=== PATIENT | male | born 1955 | race Caucasian/White ===

== ENCOUNTER 2020-09-15 10:02 | Emergency (ER) | payer MEDICARE ==
[~2020-09-15] VITALS: Ht 182.9 cm; Wt 103.3 kg
[2020-09-15 10:56] LABS: BASOPHILS % (AUTO) 1 % (0-1); EOSINOPHILS % (AUTO) 5 % (1-7); LYMPHOCYTES % (AUTO) 23 % (22-44); MEAN CORPUSCULAR HEMOGLOBIN 30.8 pg (27.5-34.5); MEAN CORPUSCULAR HGB CONC 33.4 g/dL (33.2-36.2); MEAN PLATELET VOLUME 8.4 fL (7.4-10.4); MONOCYTES % (AUTO) 15 % (2-9); NEUTROPHILS % (AUTO) 57 % (42-75); PLATELET COUNT 266 x10^3/uL (130-400); RED BLOOD COUNT 3.93 x10^6/uL (4.38-5.82); RED CELL DISTRIBUTION WIDTH 14.9 % (9.4-14.8)
[2020-09-15 10:58] LABS: MD NO
--- NOTE | 2020-09-15 11:00 | NUR ---
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 He has not had a paracentisis in the past r/t ascites. Pt in no respiratory distress. Connected to all monitors. IV started for access.
[2020-09-15 11:08] LABS: ALBUMIN 2.7 g/dL (3.4-5.0); ANION GAP 6 mmol/L (5-15); CALCIUM 8.8 mg/dL (8.5-10.1); CHLORIDE 105 mmol/L (98-107)
[2020-09-15 11:11] LABS: ALANINE AMINOTRANSFERASE 35 U/L (12-78); ALKALINE PHOSPHATASE 244 U/L (45-117); BILIRUBIN,TOTAL 0.9 mg/dL (0.2-1.0); CREATININE 1.67 mg/dL (0.7-1.3); TOTAL PROTEIN 6.7 g/dL (6.4-8.2)
[2020-09-15] MEDS ORDERED: LIDOCAINE-MPF 1%, 5ML ONE (11:56)
--- NOTE | 2020-09-15 12:05 | NUR ---
MD Govea and med student at bedside for paracentisis.
--- NOTE | 2020-09-15 12:43 | NUR ---
7L removed during paracentisis.
[2020-09-15 13:31] VITALS: BP 133/59
== END 2020-09-15 13:48 | disposition home or self-care (01) ==
LOC: ED 13:30
DX: K70.31 Alcoholic cirrhosis of liver with ascites (principal); M79.89 Other specified soft tissue disorders
CPT/HCPCS: 36415; 49083; 80053; 85025; 99285

== ENCOUNTER 2020-10-27 10:01 | Emergency (ER) | payer MEDICARE ==
[~2020-10-27] VITALS: Ht 182.9 cm; Wt 97.9 kg
[2020-10-27 10:54] LABS: BASOPHILS % (AUTO) 1 % (0-1); EOSINOPHILS % (AUTO) 2 % (1-7); LYMPHOCYTES % (AUTO) 19 % (22-44); MEAN CORPUSCULAR HEMOGLOBIN 31.6 pg (27.5-34.5); MEAN CORPUSCULAR HGB CONC 34.5 g/dL (33.2-36.2); MEAN PLATELET VOLUME 7.9 fL (7.4-10.4); MONOCYTES % (AUTO) 13 % (2-9); NEUTROPHILS % (AUTO) 65 % (42-75); PLATELET COUNT 222 x10^3/uL (130-400); RED BLOOD COUNT 3.51 x10^6/uL (4.38-5.82); RED CELL DISTRIBUTION WIDTH 15.2 % (9.4-14.8)
[2020-10-27 11:03] LABS: ALANINE AMINOTRANSFERASE 42 U/L (12-78); ALBUMIN 2.3 g/dL (3.4-5.0); ANION GAP 6 mmol/L (5-15); CALCIUM 8.9 mg/dL (8.5-10.1); CHLORIDE 107 mmol/L (98-107); CREATININE 1.25 mg/dL (0.7-1.3)
[2020-10-27 11:08] LABS: ALKALINE PHOSPHATASE 226 U/L (45-117); BILIRUBIN,TOTAL 0.8 mg/dL (0.2-1.0); TOTAL PROTEIN 6.3 g/dL (6.4-8.2); TROPONIN I < 0.015 ng/mL (0.000-0.045)
--- NOTE | 2020-10-27 11:16 | NUR ---
front end ui developer: pt from lobby to room 4
[2020-10-27] MEDS ORDERED: METF500T17 PO (11:32)
[2020-10-27] MEDS ORDERED: NPH,100V5 SQ (11:32)
[2020-10-27] MEDS ORDERED: SPIR100T4 PO (11:32)
[2020-10-27] MEDS ORDERED: LOVA40TA2 PO (11:32)
[2020-10-27] MEDS ORDERED: FURO80TA77 PO (11:32)
[2020-10-27] MEDS ORDERED: LIDOCAINE 1%, 10ML ONE (11:53)
--- NOTE | 2020-10-27 12:50 | NUR ---
PT TO IMAGING/PARACENTESIS VIA GURNEY.
--- NOTE | 2020-10-27 13:20 | NUR ---
PT BACK FROM PARACENTESIS, TOLERATED WELL. 9L DRAINED FROM ABDOMEN, GAUZE/TEGADERM DSG CDI TO RLQ ABD.
[2020-10-27 13:30] VITALS: BP 117/71
--- NOTE | 2020-10-27 13:42 | NUR ---
D/C INSTRUCTIONS & F/U APPT'S RV'WD WITH PT, HE VERBALIZES UNDERSTANDING. PT STATES HE WILL MAKE F/U WITH PCP AND LIVER SPECIALIST. PT AMBULATED OUT OF ED, STATES HE WILL DRIVE HIMSELF HOME.
== END 2020-10-27 13:40 | disposition home or self-care (01) ==
LOC: ED 13:30
DX: R18.8 Other ascites (principal); R06.02 Shortness of breath
CPT/HCPCS: 36415; 49083; 71045; 80053; 83690; 83880; 84484; 85025; 93005; 99285; J3490

== ENCOUNTER 2020-11-17 10:09 | Emergency (ER) | payer MEDICARE ==
[~2020-11-17] VITALS: Ht 182.9 cm; Wt 89.9 kg
[~2020-11-17 10:09] MED LIST: FURO80TA77 PO; LOVA40TA2 PO; METF500T17 PO; NPH,100V5 SQ; SPIR100T4 PO
--- NOTE | 2020-11-17 10:38 | NUR ---
"I HAVE LIVER DISEASE AND I NEED TO GET A PARACENTESIS. I JUST WAS HERE ON 10/17/20 AND MY ABD IS SWELLING UP AGAIN". PT RESTING IN [facility]. MD IS BEDSIDE FOR ASSESSMENT
[2020-11-17 11:13] LABS: BASOPHILS % (AUTO) 1 % (0-1); EOSINOPHILS % (AUTO) 1 % (1-7); LYMPHOCYTES % (AUTO) 18 % (22-44); MEAN CORPUSCULAR HEMOGLOBIN 31.5 pg (27.5-34.5); MEAN CORPUSCULAR HGB CONC 34.3 g/dL (33.2-36.2); MEAN PLATELET VOLUME 8.3 fL (7.4-10.4); MONOCYTES % (AUTO) 14 % (2-9); NEUTROPHILS % (AUTO) 66 % (42-75); PLATELET COUNT 238 x10^3/uL (130-400); RED BLOOD COUNT 3.77 x10^6/uL (4.38-5.82); RED CELL DISTRIBUTION WIDTH 14.4 % (9.4-14.8)
[2020-11-17 11:23] LABS: ALBUMIN 2.4 g/dL (3.4-5.0); ANION GAP 4 mmol/L (5-15); CALCIUM 8.4 mg/dL (8.5-10.1); CHLORIDE 100 mmol/L (98-107)
[2020-11-17 11:27] LABS: ALANINE AMINOTRANSFERASE 47 U/L (12-78); ALKALINE PHOSPHATASE 228 U/L (45-117); BILIRUBIN,TOTAL 0.7 mg/dL (0.2-1.0); CREATININE 1.25 mg/dL (0.7-1.3); TOTAL PROTEIN 6.4 g/dL (6.4-8.2)
--- NOTE | 2020-11-17 11:34 | NUR ---
RV'WD POC WITH PT. BLANKET PROVIDED. NO OTHER NEEDS AT THIS TIME.
[2020-11-17] MEDS ORDERED: LIDOCAINE-MPF 1%, 5ML ONE (11:55)
[2020-11-17] MEDS ORDERED: LIDOCAINE 1%, 10ML INFIL ONE (12:00)
--- NOTE | 2020-11-17 12:49 | NUR ---
ERP AT BS FOR PARACENTESIS.
--- NOTE | 2020-11-17 13:32 | NUR ---
PARACENTESIS DONE, PT TOLERATED WELL. 7.5L OF FLUID REMOVED.
[2020-11-17 13:39] VITALS: BP 101/45
--- NOTE | 2020-11-17 13:50 | NUR ---
PT AMBULATED TO BR WITHOUT DIFFICULTY. BP 101/45, HR 50s. PT DENIES DIZZINESS OR LIGHTHEADEDNESS. ERP AWARE, OKAY TO DISCHARGE PT.
--- NOTE | 2020-11-17 14:00 | NUR ---
D/C INSTRUCTIONS, MEDS & F/U APPT RV'WD WITH PT, HE VERBALIZES UNDERSTANDING. INSTRUCTED PT ABOUT HOLDING SPIRONOLACTONE DOSE TODAY AND TOMORROW PER ERP. PT AMBULATED OUT OF ED WITHOUT DIFFICULTY.
== END 2020-11-17 10:45 ==
LOC: ED 10:44
DX: K74.60 Unspecified cirrhosis of liver (principal); E87.5 Hyperkalemia; R94.31 Abnormal electrocardiogram [ECG] [EKG]
CPT/HCPCS: 36415; 49083; 80053; 85025; 93005; 99285; J3490

== ENCOUNTER 2020-12-19 07:45 | Emergency (ER) | payer MEDICARE ==
[~2020-12-19] VITALS: Ht 182.9 cm; Wt 98.8 kg
--- NOTE | 2020-12-19 08:01 | NUR ---
[facility]
[2020-12-19] MEDS ORDERED: LIDOCAINE 1%, 10ML ONE (08:33)
--- NOTE | 2020-12-19 08:44 | NUR ---
OFF THE FLOOR TO IR
[2020-12-19 10:51] VITALS: BP 115/51
== END 2020-12-19 10:53 | disposition home or self-care (01) ==
LOC: ED 08:53
DX: K70.31 Alcoholic cirrhosis of liver with ascites (principal)
CPT/HCPCS: 49083; 99285; J3490

== ENCOUNTER 2020-12-30 08:43 | Emergency (ER) | payer MEDICARE ==
[~2020-12-30] VITALS: Ht 182.9 cm; Wt 90.7 kg
--- NOTE | 2020-12-30 09:16 | NUR ---
PT PRESENTS TO ED WITH ABDOMINAL DISTENSION AND FIRMNESS INCREASED SINCE YESTERDAY. PT REPORTS NEEDING TO COME INTO ED Q3 WEEKS FOR PARACENTESIS. PT REPORTS TIPS PROCEDURE SCHEDULED 02/02/21. PT RECLINED IN [facility], DENIES PAIN AT THIS TIME. RESPIRATIONS EVEN AND UNLABORED ON RA. SIDE RAILS UP, CALL LIGHT IN REACH. AWAITING ERMD EVALUATION.
--- NOTE | 2020-12-30 10:10 | NUR ---
PT TAKEN TO IR FOR PARACENTESIS.
[2020-12-30] MEDS ORDERED: LIDOCAINE 1%, 10ML ONE (10:11)
--- NOTE | 2020-12-30 11:21 | NUR ---
PT SITTING RECLINED IN BED USING CELL PHONE. NAD NOTED AT THIS TIME. PER PT "THEY TOOK 9.5 LITERS OFF OF ME" REPORTS FEELING RELIEF FROM PARACENTESIS.
[2020-12-30 12:39] VITALS: BP 114/58
== END 2020-12-30 12:41 | disposition home or self-care (01) ==
LOC: ED 09:13
DX: K70.31 Alcoholic cirrhosis of liver with ascites (principal); Z90.89 Acquired absence of other organs; Z90.49 Acquired absence of other specified parts of digestive tract
CPT/HCPCS: 49083; 99285; J3490